=== PATIENT | female | born 1990 | race African-American/Black ===

== ENCOUNTER 2024-01-04 14:02 | Emergency (ER) | payer BC, SELFPAY ==
[2024-01-04 14:13] VITALS: BP 131/73; PULSE 110; RESP 20; TEMP 36.5; O2SAT 98
[2024-01-04 15:35] LABS: Strep Group A RT-PCR DETECTED (Negative)
--- NOTE | 2024-01-04 15:45 | ED.URI ---
HPI - URI/Sore Throat General Chief Complaint: Upper Respiratory Infection Stated Complaint: fever, chills, cough Time Seen by Provider: 01/04/24 14:41 History of Present Illness HPI Narrative: 33-year-old female presents to the emergency room for evaluation of sudden onset fever, body aches, sore throat, productive cough, postnasal drip, sinus congestion. Patient states she took ibuprofen once with no improvement of her symptoms. Denies earache. Denies shortness of breath or difficulty Breathing Review of Systems Review of Systems: ROS unremarkable except for noted in HPI Exam Narrative: GENERAL: ill-appearing, well-nourished, no physical limitations, and in no acute distress. HEAD: Normocephalic, atraumatic. EYES: Conjunctivae normal, PERRLA and EOMI. ENT: External nose normal, Nares clear, no rhinorrhea or epistaxis. Mucous membranes moist. Oropharynx without tonsillar hypertrophy exudate or other lesions. External ears normal, bilateral TMs normal bilaterally NECK: Supple. No adenopathy or masses. CHEST: Clear to auscultation. No respiratory distress. No wheezes rales or rhonchi. HEART: Regular rate and rhythm. No murmur heard. Normal peripheral pulses. EXTREMITIES: Normal range of motion. No edema. No clubbing or cyanosis SKIN: Warm, dry, no rash. No noted wounds NEURO: No focal deficits. Alert and oriented x3. MAEW. CN's II-XI intact bilaterally, normal gait PSYCH: Cooperative. Normal mood and affect. Course Vital Signs Vital signs: Vital Signs Temperature 36.5 C 01/04/24 14:13 Pulse Rate 110 H 01/04/24 14:13 Respiratory Rate 01/04/24 14:13 Blood Pressure 131/73 01/04/24 14:13 Pulse Oximetry 98 01/04/24 14:13 Oxygen Delivery Room Air 01/04/24 14:13 Temperature 36.5 C 01/04/24 14:13 Pulse Rate 110 H 01/04/24 14:13 Respiratory Rate 01/04/24 14:13 Blood Pressure 131/73 01/04/24 14:13 Pulse Oximetry 98 01/04/24 14:13 Oxygen Delivery Room Air 01/04/24 14:13 MDM - URI/Sore Throat Lab Data Labs: Lab Results 07/09/24 Range/Units 15:06 Influenza A (RT-PCR) Pending Influenza B (RT-PCR) Pending RSV (RT-PCR) Pending SARS-CoV-2 RNA (RT-PCR) Pending Group A Strep (PCR) Detected A (Negative) Discharge Plan Discharge Clinical Impression: Upper respiratory infection, Strep pharyngitis Patient Disposition: Home, Self-Care Condition: Stable Instructions: Antibiotic Form, Strep Throat (ED), Cold Symptoms (ED) Prescriptions: New amoxicillin 500 mg capsule 500 mg PO Q12H Qty: 20 0RF promethazine-DM 6.25-15 mg/5 mL syrup 5 ml PO Q4-6H PRN (Reason: cough) Qty: 118 0RF pseudoephedrine HCl 30 mg tablet 30 mg PO Q4-6H PRN (Reason: nasal congestion) Qty: 48 0RF Rx Instructions: DNExceed 4 doses/24h Follow-up/Referrals: Norris,Panda Luna [Primary Care Provider] - Time of Disposition: 15:49
[2024-01-04 15:51] LABS: Influenza A QL RT-PCR Negative (Negative); Influenza B QL RT-PCR Negative (Negative); RSV RNA, RT-PCR Negative (Negative); SARS-CoV-2 RNA PCR Positive (Negative)
== END 2024-01-04 16:06 | disposition home or self-care (01) ==
PROVIDERS: Emergency Provider Nurse Practitioner Family; PCP Internal Medicine Infectious Disease
DX: J02.0 Streptococcal pharyngitis (principal); Z20.822 Contact with and (suspected) exposure to COVID-19
CPT/HCPCS: 87637; 87651; 99283